=== PATIENT | female | born 1950 | race Caucasian/White ===

== ENCOUNTER → 2016-11-28 | Outpatient (CLI) | payer MEDICARE, OTHER ==
[~2016-11-28] MED LIST: 00186-0370-20 IH; ASPIRIN 32325 MG/TAB PO; ATARAX 25MG25 MG/TAB PO; CALCIUM + D 6001 TAB PO; CO Q-1010 M1 PO; COQ(10)1010 MG PO; GLUCOSAMINE & C1 CA1 PO; GLUCOSAMINE CHO1 CAP PO; IMITREX100 MG PO; LECITHIN-191200 MG PO; LIDODERM PATCH TP; LUTEIN20 M1 PO; MENEST0.625 MG PO; NORCO 325 MG-51 TAB PO; OCUVITE1 TA1 PO; OMEGA-3 FISH1000 MG PO; OSCAL 500 TAB500 MG PO; PRILOSEC 20MG20 MG PO; PROBIOTIC FORMU1 CAP PO; RESTORIL 1515 MG/CAP PO; SINGULAIR 110 MG/TAB PO; SUPER EPA W/BO400 MG PO; TOPAMAX 25MG25 M1 PO; TUMERIC PO; VITAMIN B122500 MCG PO; VITAMIN B150 MG PO; WELLBUTRIN SR200 MG PO; ZEAXANTHIN PO; ZOCOR 10MG10 MG PO; ZOLOFT 50MG50 MG PO; ZYRTEC 10MG10 MG PO; [UNRECOGNIZED DRUG - OTHER] PO; [UNRECOGNIZED DRUG - OTHER] PO
== END ==
LOC: BHSO 10:07
DX: F33.42 Major depressive disorder, recurrent, in full remission (principal)

== ENCOUNTER → 2016-12-09 | Outpatient (REF) | LOC: WSOH 10:48 | DX: Z02.1 Encounter for pre-employment examination (principal) ==

== ENCOUNTER → 2016-12-12 | Outpatient (CLI) | payer MEDICARE, OTHER | LOC: COL.RAD 07:35 | DX: K21.9 Gastro-esophageal reflux disease without esophagitis (principal); K22.4 Dyskinesia of esophagus ==

== ENCOUNTER → 2017-01-01 | Outpatient (REF) | LOC: WSOH 10:20 | DX: Z11.1 Encounter for screening for respiratory tuberculosis (principal) ==

== ENCOUNTER 2017-01-15 09:20 | Day surgery (SDC) | payer MEDICARE, OTHER ==
[2017-01-15] VITALS (8 sets, daily range): BP systolic 106–133; BP diastolic 44–64; PULSE 60–71; TEMP 97–98.2
[~2017-01-15] VITALS: Ht 165.1 cm; Wt 77.1 kg
[~2017-01-15 09:20] MED LIST changes: -OSCAL 500 TAB500 MG PO; -PROBIOTIC FORMU1 CAP PO; -TUMERIC PO; -ZOLOFT 50MG50 MG PO; -[UNRECOGNIZED DRUG - OTHER] PO
[2017-01-15] MEDS ORDERED: PROBIOTIC FORMU1 CAP PO (10:42)
[2017-01-15] MEDS ORDERED: TUMERIC PO (10:43)
[2017-01-15] MEDS ORDERED: [UNRECOGNIZED DRUG - OTHER] PO (10:44)
[2017-01-16] MEDS ORDERED: OSCAL 500 TAB500 MG PO (01:10)
[2017-01-16 01:46] VITALS: BP 103/45; PULSE 59; TEMP 98.2
[2017-01-16 04:51] VITALS: BP 117/43; PULSE 58; TEMP 98
[2017-01-16] MEDS ORDERED: ZOLOFT 50MG50 MG PO (08:30)
[2017-01-16 09:43] VITALS: BP 126/45; PULSE 66; TEMP 98.6
[2017-01-16 13:47] VITALS: BP 134/52; PULSE 61; TEMP 98
== END 2017-01-16 17:42 | disposition home or self-care (01) ==
LOC: SDCO 09:20 → SURG 15:42 → SDCO 01-16 17:42
DX: K21.9 Gastro-esophageal reflux disease without esophagitis (principal)
CPT/HCPCS: OP; J0461; J0690; J1100; J1885; J2405; J2704; J2710; J3010; J7042; J7120

== ENCOUNTER → 2017-02-17 | Outpatient (CLI) | payer MEDICARE, OTHER ==
[~2017-02-17] MED LIST changes: +OSCAL 500 TAB500 MG PO; +PROBIOTIC FORMU1 CAP PO; +TUMERIC PO; +ZOLOFT 50MG50 MG PO; +[UNRECOGNIZED DRUG - OTHER] PO
== END ==
LOC: COL.RAD 07:40
DX: N28.1 Cyst of kidney, acquired (principal)

== ENCOUNTER → 2017-02-17 | Outpatient (CLI) | payer MEDICARE, OTHER | LOC: BHSO 09:50 | DX: F33.42 Major depressive disorder, recurrent, in full remission (principal) ==

== ENCOUNTER → 2017-05-20 | Outpatient (CLI) | payer MEDICARE, OTHER | LOC: BHSO 08:25 | DX: F33.42 Major depressive disorder, recurrent, in full remission (principal) ==

== ENCOUNTER → 2017-08-14 | Outpatient (CLI) | payer MEDICARE, OTHER | LOC: BHSO 09:57 | DX: F33.42 Major depressive disorder, recurrent, in full remission (principal) ==

== ENCOUNTER → 2018-02-19 | Outpatient (CLI) | payer MEDICARE, OTHER | LOC: BHSO 10:01 | DX: F33.42 Major depressive disorder, recurrent, in full remission (principal) | CPT/HCPCS: G0463 ==

== ENCOUNTER → 2018-08-13 | Outpatient (CLI) | payer MEDICARE, OTHER | LOC: BHSO 10:31 | DX: F33.42 Major depressive disorder, recurrent, in full remission (principal) | CPT/HCPCS: G0463 ==

== ENCOUNTER → 2019-02-25 | Outpatient (CLI) | payer MEDICARE, OTHER | LOC: BHSO 09:47 | DX: F33.42 Major depressive disorder, recurrent, in full remission (principal) | CPT/HCPCS: G0463 ==

== ENCOUNTER → 2019-06-24 | Outpatient (CLI) | payer MEDICARE, OTHER | LOC: COL.RAD 12:11 | DX: H54.61 Unqualified visual loss, right eye, normal vision left eye (principal); G31.9 Degenerative disease of nervous system, unspecified; I67.82 Cerebral ischemia ==

== ENCOUNTER → 2019-11-04 | Outpatient (CLI) | payer MEDICARE, OTHER | LOC: BHSO 10:12 | DX: F33.41 Major depressive disorder, recurrent, in partial remission (principal) | CPT/HCPCS: G0463 ==

== ENCOUNTER → 2020-05-03 | Outpatient (CLI) | payer MEDICARE, OTHER | LOC: BHSO 09:04 | DX: F33.41 Major depressive disorder, recurrent, in partial remission (principal) | CPT/HCPCS: G0463 ==

== ENCOUNTER → 2020-05-31 | Outpatient (CLI) | payer MEDICARE, OTHER | LOC: BHSO 09:35 | DX: F33.41 Major depressive disorder, recurrent, in partial remission (principal) | CPT/HCPCS: G0463 ==

== ENCOUNTER → 2020-07-06 | Outpatient (CLI) | payer MEDICARE, OTHER | LOC: BHSO 10:05 | DX: F33.42 Major depressive disorder, recurrent, in full remission (principal) | CPT/HCPCS: G0463 ==